=== PATIENT | female | born 1975 | race Caucasian/White ===

== ENCOUNTER 2024-02-12 08:01 | Outpatient (AMB) | payer BC, SELFPAY ==
--- NOTE | 2024-02-12 08:08 | A.OFFVIS_ITS ---
Intake Vital Signs 02/12/24 08:28 Height 5 ft 3 in Weight 205 lb 2 oz BMI 36.3 BP 115/72 Blood Pressure Location Lt brachial Position Sitting Pulse 68 Pulse Source Pulse Oximeter Pulse Oximetry (%) 98 Oxygen Delivery Method Room Air Intake Visit Reasons: [employer]: MARY+Snoring - VM full Unable to conf Intake Note: Patient presents for MARY. Severe allergy's and gets about 10 sinus infection a year.. Gasping for air during the night and lots of snoring. Can't get a restful sleep and takes a long time to fall asleep. Allergies thenyldiamine Allergy (Intermediate, Verified 02/12/24 08:22) Vomiting Peaches Allergy (Severe, Uncoded 02/12/24 08:22) Shortness of Breath Walnuts Allergy (Uncoded 02/12/24 08:22) Shortness of Breath HPI HPI Comments History of Present Illness Details 48 y/o female patient presents for new i n-person visit for sleep consultation. Pt reports difficulty falling asleep, but no difficulty staying. She sleep 6-7hrs, but wakes up extremely tired. Pt reports she snores, and witnessed apnea spells. She also has severe allergy and nasal congestion. She smokes cigarets half pack a day. Sleep questionnaire: Have you ever been diagnosed with a sleep disorder? No. Have you ever had a sleep study in the past? No. Have you ever been treated for a sleep disorder? No. Do you take medications for a sleep disorder? No. Do you snore? Yes. Do you wake up gasping at night? Yes. Do you have episodes of apneas? Yes. If yes, are they witnessed? Yes. Do you have episodes of nocturnal chest pain or dyspnea? No. Do you have difficulty initiating sleep? Yes. Do you have difficulty maintaining sleep? No. Do you wake up tired? Yes. Do you have headaches upon awakening? No. Do you wake up with dry mouth or throat? Not really. Do you have GERD? Yes. Do you have nocturia? No. Do you have nocturnal leg cramps? No. Do you have symptoms of restless legs? No. Do you act out your dreams? Yes, sometimes. Sleep hygiene questionnaire: What is your usual sleep routine? Usual bedtime is at 11:30-12:30 am; Usual wake up time is at 6:30 am. Do you take naps? No. Is your sleep environment cool, dark, and quiet? Yes. Do you exercise? No. Do you take caffeine or other stimulants? Coffee in the morning. Do you use electronics in bed? Watches TV. What is your work schedule? 9 am-5 pm. Hypersomnolence questionnaire: Do you have daytime tiredness or fatigue? Yes. Do you easily fall asleep when inactive? No. Have you ever had episodes of sudden weakness? No. Have you ever had episodes of sudden weakness associated with strong emotions? No. PFSH Surgical History History of removal of ovarian cyst History of bunionectomy H/O tubal ligation Family History (Updated 02/12/24 @ 08:26 by Dorothy Lopez CMA) Mother Diabetes Heart murmur Sleep apnea Father Heart disease Maternal Grandmother Cancer Maternal Grandfather Cancer Son Crohn's disease Daughter Depression Hypertension Social History (Updated 02/12/24 @ 08:28 by Dorothy Lopez CMA) Household Members: Spouse Housing: House Alcohol intake: former Comment: Occasionally Patient Tobacco Use Status: Current everyday Tobacco user Tobacco use type: Cigarette Cigarette Packs Per Day: 0.5 Years Smoked: 20 Review of Systems Const All systems reviewed & are unremarkable except as noted in HPI and below Physical Exam Vital Signs: Last Vital Signs Pulse 68 02/12/24 08:28 BP 115/72 02/12/24 08:28 Pulse Ox 98 02/12/24 08:28 Oxygen Delivery Method Room Air 02/12/24 08:28 BMI result Body Mass Index 36.3 Const General: cooperative and tired appearing Nutritional Appearance: obese Orientation/consciousness: patient oriented x3 Neck Neck: Yes full ROM and Yes supple Resp Effort & Inspection: normal respiratory effort and able to speak in complete sentences Neuro General: patient oriented x3, gait normal and moves all extremities Cranial nerves: Yes CN's II-XII intact bilaterally Cognition (Neuro): normal cognition Gait exam (Neuro): Normal gait present Motor exam (neuro): 5/5 motor strength present throughout Psych Appearance: grossly normal Mental Status: mental status grossly normal Speech and movement: Normal speech and movement present Affect: normal affect Attitude: cooperative Assessment & Plan Assessment & Plan (1) Daytime sleepiness: Code(s): R40.0 - Somnolence (2) Snoring: Code(s): R06.83 - Snoring (3) Witnessed apneic spells: Code(s): R06.81 - Apnea, not elsewhere classified Plan Pt is advised to undergo home sleep study to assess for sleep apnea. Will f/u with pt after study to discuss results and appropriate treatment options. Sleep hygiene education provided, limit electronic use and reduce smoking. Wt reduction advised. Pt to call with any worsening concerns or questions. Orders: Orders RT home sleep study Today R06.81 - Apnea, not elsewhere classified, R06.83 - Snoring, R40.0 - Somnolence Coding Level of Care Code New Pt Level 3 (15672) Diagnoses Daytime sleepiness R40.0 Snoring R06.83 Witnessed apneic spells R06.81
[2024-02-12 08:28] VITALS: BP 115/72; PULSE 68; O2SAT 98; BMI 36.3
== END 2024-02-12 08:54 | disposition home or self-care (01) ==
PROVIDERS: PCP Nurse Practitioner; Visit Provider Nurse Practitioner Family
DX: R40.0 Somnolence (principal); R06.83 Snoring; R06.81 Apnea, not elsewhere classified
CPT/HCPCS: 99203

== ENCOUNTER → 2024-02-12 08:01 | Outpatient (BNVA) | payer BC, SELFPAY | PROVIDERS: PCP Nurse Practitioner; Visit Provider Nurse Practitioner Family ==